=== PATIENT | female | born 1960 | race Caucasian/White ===

== ENCOUNTER 2017-03-11 09:40 | Inpatient (IN) | payer BC, OTHER ==
[2017-03-11] VITALS (11 sets, daily range): BP systolic 87–154; BP diastolic 51–73; PULSE 92–109; RESP 16–19; TEMP 97.8–98.8; O2SAT 97–100
[~2017-03-11] VITALS: Ht 165.1 cm; Wt 65.1 kg
[~2017-03-11 09:40] MED LIST: ACIP20TA19 PO; BONI150T PO; BUPR-197 PO; LEXA10TA PO
[2017-03-11] MEDS ORDERED: WELLTAB39 PO (09:49)
[2017-03-11] MEDS ORDERED: ALPR.5 PO (09:49)
[2017-03-11] MEDS ORDERED: LEXA20TA PO (09:49)
[2017-03-11] MEDS ORDERED: SODIUM CHLORIDE 0.9% FLUSH 10 ML FLUSH IVF PRN (10:15)
[2017-03-11] MEDS ORDERED: SODIUM CHLOR 0.9% 1000 ML INJ 1,000 ML IV ONE (10:15)
--- NOTE | 2017-03-11 10:15 | PD ---
HPI Chief Complaint: Cardiac Complaint Time Seen by Provider: 09:57 Travel History International Travel<30 days: No Contact w/Intl Traveler<30days: No Traveled to known affect area: No History of Present Illness HPI 56-year-old female with history of anxiety and depression here for evaluation of lightheadedness and feeling like herself. Symptoms have been going on for the last 2 weeks, worse since yesterday. When the patient goes from sitting to standing she feels very lightheaded. She denies chest pain or dyspnea. No fevers, chills, cough, or recent illness. No abdominal pain. No urinary symptoms. No melena or hematochezia. Orthostatic vital signs performed by EMS shows that the patient's blood pressure goes from 120/60 while sitting to 59/50 while standing. Her heart rate goes from 80 to 140. PFSH Past Medical History Blood Disorders: No Anxiety: Yes Depression: Yes Cancer: No Cardiovascular Problems: No Chemotherapy: No Cerebrovascular Accident: No Endocrine: No Gastrointestinal Disorders: Yes GERD: Yes Genitourinary: No Headaches: No Hepatitis: No Hiatal Hernia: No Immune Disorder: No Musculoskeletal: No Neurologic: Yes (MOTION SICKNESS) Psychiatric: Yes Reproductive: No Respiratory: No Migraines: No Radiation Therapy: No Seizures: No Ulcer: Yes Tetanus Vaccination: Unknown Influenza Vaccination: No Past Surgical History Abdominal Surgery: Yes (BOWEL OBSTRUCTION SURGERY 2011) AICD: No Appendectomy: No Arteriovenous Shunt: No Cardiac Surgery: No Section: Yes Cholecystectomy: No Ear Surgery: No Endocrine Surgery: No Eye Surgery: No Genitourinary Surgery: No Gynecologic Surgery: Yes (ABD HYSTERCTOMY) Hysterectomy: Yes Insulin Pump: No Joint Replacement: No Oral Surgery: No Pacemaker: No Thoracic Surgery: No Social History Alcohol Use: Yes Tobacco Use: No Substance Use: No Allergies-Medications (Allergen,Severity, Reaction): Coded Allergies: No Known Allergies (Verified , 03/11/17) Reported Meds & Prescriptions Reported Meds & Active Scripts Active Reported Xanax (Alprazolam) 0.5 Mg Tab 0.5 Mg PO Q6H PRN Lexapro (Escitalopram Oxalate) 20 Mg Tab 20 Mg PO DAILY Wellbutrin Xl 24 HR (Bupropion HCl) 300 Mg Tab 300 Mg PO DAILY Review of Systems Except as stated in HPI: all other systems reviewed are Neg Physical Exam Narrative GENERAL: Well-developed, well-nourished, awake, alert, comfortable, no apparent distress. SKIN: Focused skin assessment warm/dry. HEAD: Atraumatic. Normocephalic. EYES: Pupils equal and round. No scleral icterus. No injection or drainage. ENT: No nasal bleeding or discharge. Mucous membranes pink and moist. NECK: Trachea midline. No JVD. CARDIOVASCULAR: Regular rate and rhythm. RESPIRATORY: No accessory muscle use. Clear to auscultation. Breath sounds equal bilaterally. GASTROINTESTINAL: Abdomen soft, non-tender, nondistended. MUSCULOSKELETAL: No obvious deformities. No clubbing. No cyanosis. No edema. NEUROLOGICAL: Awake and alert. No obvious cranial nerve deficits. Motor grossly within normal limits. Normal speech. PSYCHIATRIC: Appropriate mood and affect; insight and judgment normal. Data Data Last Documented VS Vital Signs Date Time Temp Pulse Resp B/P (MAP) Pulse Ox O2 Delivery O2 Flow Rate FiO2 03/11/17 10:28 98.8 97 18 116/70 (85) 100 Room Air Orders Orders Electrocardiogram (03/11/17 ) Basic Metabolic Panel (Bmp) (03/11/17 10:11) Ckmb (Isoenzyme) Profile (03/11/17 10:11) Complete Blood Count With Diff (03/11/17 10:11) D-Dimer (03/11/17 10:11) Magnesium (Mg) (03/11/17 10:11) Prothrombin Time / Inr (Pt) (03/11/17 10:11) Act Partial Throm Time (Ptt) (03/11/17 10:11) Troponin I (03/11/17 10:11) Chest, Single Ap (03/11/17 10:11) Ecg Monitoring (03/11/17 10:11) Iv Access Insert/Monitor (03/11/17 10:11) Oximetry (03/11/17 10:11) Sodium Chloride 0.9% Flush (Ns Flush) (03/11/17 10:15) Urinalysis - C+S If Indicated (03/11/17 10:11) Sodium Chlor 0.9% 1000 Ml Inj (Ns 1000 M (03/11/17 10:15) Type And Screen (03/11/17 10:58) Red Blood Cells (Rbc) (03/11/17 11:03) Blood Product Administration (03/11/17 11:03) Sodium Chlor 0.9% 250 Ml Inj (Ns 250 Ml (03/11/17 11:15) Sodium Chloride 0.9... W/Pantoprazole In (03/11/17 11:04) Sodium Chloride 0.9... W/Pantoprazole In (03/11/17 11:04) Admit Order (Ed Use Only) (03/11/17 12:18) Labs Laboratory Tests Test 03/11/17 10:15 White Blood Count 5.0 TH/MM3 Red Blood Count 2.42 MIL/MM3 Hemoglobin 7.3 GM/DL Hematocrit 21.4 % Mean Corpuscular Volume 88.4 FL Mean Corpuscular Hemoglobin 30.3 PG Mean Corpuscular Hemoglobin Concent 34.2 % Red Cell Distribution Width 14.9 % Platelet Count 203 TH/MM3 Mean Platelet Volume 7.8 FL Neutrophils (%) (Auto) 58.9 % Lymphocytes (%) (Auto) 33.3 % Monocytes (%) (Auto) 6.2 % Eosinophils (%) (Auto) 0.7 % Basophils (%) (Auto) 0.9 % Neutrophils # (Auto) 2.9 TH/MM3 Lymphocytes # (Auto) 1.7 TH/MM3 Monocytes # (Auto) 0.3 TH/MM3 Eosinophils # (Auto) 0.0 TH/MM3 Basophils # (Auto) 0.0 TH/MM3 CBC Comment DIFF FINAL Differential Comment Prothrombin Time 12.5 SEC Prothromb Time International Ratio 1.1 RATIO Activated Partial Thromboplast Time 25.5 SEC D-Dimer Quantitative (PE/DVT) LESS THAN 0.19 MG/L FEU Blood Urea Nitrogen 33 MG/DL Creatinine 0.65 MG/DL Random Glucose 96 MG/DL Calcium Level 8.0 MG/DL Magnesium Level 1.8 MG/DL Sodium Level 138 MEQ/L Potassium Level 4.1 MEQ/L Chloride Level 106 MEQ/L Carbon Dioxide Level 27.6 MEQ/L Anion Gap 4 MEQ/L Estimat Glomerular Filtration Rate 94 ML/MIN Total Creatine Kinase 50 U/L Troponin I LESS THAN 0.02 NG/ML MDM Medical Decision Making Medical Screen Exam Complete: Yes Emergency Medical Condition: Yes Interpretation(s) EKG: Sinus, rate 94, normal axis, normal intervals, incomplete RBBB, no acute ischemic abnormality. Differential Diagnosis Dehydration, anemia, ACS, pneumothorax, PE Narrative Course Initial vital signs show heart rate 109, blood pressure 159/73, pulse ox 100% on room air, oral temp of 97.8F. CBC is remarkable for hemoglobin 7.3, hematocrit 21.4. BMP is unremarkable. Cardiac enzymes are negative. Stool is heme positive and black. Given symptomatic anemia, the patient was written for 2 units of PRBCs. She reports history of bleeding ulcers about 5 years ago. She was consented for blood transfusion. She was also given a Protonix bolus and started on Infusion. Patient was made aware of all findings. She will be admitted for symptomatic anemia, melena. Case discussed with hospitalist Dr. Laird who will admit the patient to her service. Critical Care Narrative Aggregate critical care time was 35 minutes. Time to perform other separately billable procedures was not included in the critical care time. My time did not include minutes spent treating any other patients simultaneously or on activities that did not directly contribute to the patient's treatment. The services I provided to this patient were to treat and/or prevent clinically significant deterioration that could result in: Hemorrhagic shock, , worsening clinical condition, permanent disability I provided critical care services requiring my management, as noted below: Chart data review, documentation time, medication orders and management, vital sign assessments/reviewing monitor data, ordering and reviewing lab tests, ordering and interpreting/reviewing x-rays and diagnostic studies, care of the patient and discussion of the patient with the admitting physicians. Diagnosis Primary Impression: Symptomatic anemia Additional Impression: Melena Admitting Information Admitting Physician Requests: Admit Adriano Meredith MD Mar 11, 2017 10:15
[2017-03-11 10:53] LABS: AUTOMATED NEUTROPHIL # 2.9 TH/MM3 (1.8-7.7); BASOPHIL % 0.9 % (0.0-2.0); EOSINOPHIL % 0.7 % (0.0-4.0); HEMATOCRIT 21.4 % (35.0-46.0); HEMO FLAGS DIFF FINAL; LYMPH % 33.3 % (9.0-44.0); LYMPHOCYTE # 1.7 TH/MM3 (1.0-4.8); MEAN CELL VOLUME 88.4 FL (80.0-100.0); MEAN CORPUSCULAR HEMOGLOBIN 30.3 PG (27.0-34.0); MEAN CORPUSCULAR HGB CONC 34.2 % (32.0-36.0); MONO % 6.2 % (0.0-8.0); NEUT % 58.9 % (16.0-70.0); PLATELET COUNT 203 TH/MM3 (150-450); RED BLOOD COUNT 2.42 MIL/MM3 (4.00-5.30); RED CELL DISTRIBUTION WIDTH 14.9 % (11.6-17.2)
[2017-03-11] MEDS ORDERED: PANTOPRAZOLE INJ 80 MG in SODIUM CHLORIDE 0.9% INJ 35 ML IV ONE (11:04)
[2017-03-11 11:07] LABS: APTT (PATIENT) 25.5 SEC (24.3-30.1); INTERNATIONAL NORMALIZED RATIO 1.1 RATIO; PROTHROMBIN TIME - PATIENT 12.5 SEC (9.8-11.6)
[2017-03-11] MEDS ORDERED: SODIUM CHLOR 0.9% 250 ML INJ 250 ML IV ONE (11:15)
--- NOTE | 2017-03-11 11:16 | RADRPT ---
EXAM DATE/TIME: 03/11/2017 10:25 [facility] COMPARISON: No previous studies available for comparison. INDICATIONS : Shortness of breath, lightheaded, and dizzy. MEDICAL HISTORY : None. SURGICAL HISTORY : None. ENCOUNTER: Initial ACUITY: 2 days PAIN SCORE: 0/10 LOCATION: Bilateral chest FINDINGS: A single view of the chest demonstrates the lungs to be symmetrically aerated without evidence of mas s, infiltrate or effusion. The cardiomediastinal contours are unremarkable. Osseous structures are intact. CONCLUSION: No acute disease. Mauro Aguila MD on March 11, 2017 at 11:09 Board Certified Radiologist. This report was verified electronically.
[2017-03-11 11:34] LABS: ANION GAP 4 MEQ/L (5-15); BICARBONATE 27.6 MEQ/L (21.0-32.0); BLOOD UREA NITROGEN 33 MG/DL (7-18); CHLORIDE 106 MEQ/L (98-107); GLOMERULAR FILTRATION RATE 94 ML/MIN (>89); MAGNESIUM 1.8 MG/DL (1.5-2.5); POTASSIUM 4.1 MEQ/L (3.5-5.1); SODIUM (NA) 138 MEQ/L (136-145)
[2017-03-11 11:39] LABS: CREATINE KINASE 50 U/L (26-192)
[2017-03-11] MEDS ORDERED: LACTULOSE SYRUP 20 GM/30 ML CUP PO PRN (12:30)
[2017-03-11] MEDS ORDERED: SENNOSIDES 8.6 MG TAB PO PRN (12:30)
[2017-03-11] MEDS ORDERED: BISACODYL 10 MG SUPP RECTAL PRN (12:30)
[2017-03-11] MEDS ORDERED: MAGNESIUM HYDROXIDE SUSP 30 ML CUP PO PRN (12:30)
[2017-03-11] MEDS ORDERED: NALOXONE HCL 0.4 MG/ML AMP IV PUSH PRN (12:30)
[2017-03-11] MEDS ORDERED: ONDANSETRON HCL 4 MG/2 ML VIAL IVP PRN (12:30)
[2017-03-11] MEDS ORDERED: SODIUM CHLORIDE 0.9% FLUSH 10 ML FLUSH IV FLUSH PRN (12:30)
--- NOTE | 2017-03-11 12:42 | HHI.HP ---
[facility] Nick Joseph MD Admission Diagnosis symptomatic anemia, melena Diagnoses: Chief Complaint: Lightheadedness Travel History International Travel<30 Days: No Contact w/Intl Traveler <30 Da: No Traveled to Known Affected Are: No History of Present Illness Written by Chivo Kirkland, acting as scribe for Dr. Laird on 03/11/17 at 12:42. 56-year-old female with past medical history of anxiety, depression, PUD who presents for lightheadedness. Patient has been feeling poorly for the past week with chest heaviness, difficulty catching her breath, and lightheadedness. She's been feeling significantly lightheaded and dizzy since yesterday that is made worse with standing. She has some nausea today, but denies any vomiting and oral intake has been good. She hasn't noticed any changes in her stools, however she was found to have grossly melanotic and she was hemoccult positive stool in the ED. Upon EMS arrival she had a systolic blood pressure in the 60s that has improved to 120s with IVF. She remains tachycardic on the monitor in the ED. The patient has been taking Excedrin for headaches, unsure if this formulation has any aspirin or NSAIDs. She does have a history of GI ulcers, last EGD done 7 or 8 years ago. She does not take anything for stomach acid. She does have a glass of wine a few times per week, denies daily use. Review of Systems Except as stated in HPI: all other systems reviewed are Neg Past Family Social History Past Medical History Anxiety/depression GERD/PUD Past Surgical History Hysterectomy EGD/colonoscopy Surgery to have her "bowels untwisted" Reported Medications Reported Meds & Active Scripts Active Reported Xanax (Alprazolam) 0.5 Mg Tab 0.5 Mg PO Q6H PRN Lexapro (Escitalopram Oxalate) 20 Mg Tab 20 Mg PO DAILY Wellbutrin Xl 24 HR (Bupropion HCl) 300 Mg Tab 300 Mg PO DAILY Allergies: Coded Allergies: No Known Allergies (Verified , 03/11/17) Active Ordered Medications Current Medications Medications (Trade) Dose Ordered Sig/Aristeo Route Start Time Stop Time Status Last Admin (NS Flush) 2 ml UNSCH PRN IVF 03/11/17 10:15 Sodium Chloride 250 ml @ 15 mls/hr ONCE ONCE IV 03/11/17 11:15 03/12/17 03:54 Pantoprazole Sodium 80 mg/ Sodium Chloride 100 ml @ 10 mls/hr Q10H IV 03/11/17 11:04 (NS Flush) 2 ml UNSCH PRN IV FLUSH 03/11/17 12:30 (NS Flush) 2 ml BID IV FLUSH 03/11/17 21:00 (Tylenol) 650 mg Q4H PRN PO 03/11/17 12:30 (Zofran Inj) 4 mg Q6H PRN IVP 03/11/17 12:30 (Restoril) 15 mg HS PRN PO 03/11/17 21:00 (Narcan Inj) 0.4 mg UNSCH PRN IV PUSH 03/11/17 12:30 (Renuka-Colace) 1 tab BID PO 03/11/17 21:00 (Milk Of Magnesia Liq) 30 ml Q12H PRN PO 03/11/17 12:30 (Senokot) 17.2 mg Q12H PRN PO 03/11/17 12:30 (Dulcolax Supp) 10 mg DAILY PRN RECTAL 03/11/17 12:30 (Lactulose Liq) 30 ml DAILY PRN PO 03/11/17 12:30 Family History Father had Alzheimer's disease Social History Occasional wine Denies any tobacco or drug use Physical Exam Vital Signs Vital Signs Date Time Temp Pulse Resp B/P (MAP) Pulse Ox O2 Delivery O2 Flow Rate FiO2 03/11/17 10:28 98.8 97 18 116/70 (85) 100 Room Air 03/11/17 09:58 98.8 97 18 116/70 (85) 100 Room Air 03/11/17 09:49 18 03/11/17 09:44 97.8 109 18 154/73 (100) 100 Physical Exam GENERAL: Well-developed well-nourished. In no acute distress. SKIN: Warm and dry. No lesions noted. HEENT: Normocephalic. Pupils equal and round. EOMs intact. Mucous membranes pink and moist. CARDIOVASCULAR: Regular rate and rhythm. No murmur appreciated. RESPIRATORY: No accessory muscle use. Clear to auscultation. Breath sounds equal bilaterally. GASTROINTESTINAL: Abdomen soft, non-tender, nondistended. Bowel sounds x4. MUSCULOSKELETAL: No obvious deformities. No clubbing or cyanosis. No edema. NEUROLOGICAL: Awake and alert. No focal neurological deficits. Moves upper and lower extremities spontaneously. Normal speech. Strength 5/5. PSYCHIATRIC: Appropriate mood and affect; insight and judgment normal. Laboratory Laboratory Tests Test 03/11/17 10:15 White Blood Count 5.0 Red Blood Count 2.42 Hemoglobin 7.3 Hematocrit 21.4 Mean Corpuscular Volume 88.4 Mean Corpuscular Hemoglobin 30.3 Mean Corpuscular Hemoglobin Concent 34.2 Red Cell Distribution Width 14.9 Platelet Count 203 Mean Platelet Volume 7.8 Neutrophils (%) (Auto) 58.9 Lymphocytes (%) (Auto) 33.3 Monocytes (%) (Auto) 6.2 Eosinophils (%) (Auto) 0.7 Basophils (%) (Auto) 0.9 Neutrophils # (Auto) 2.9 Lymphocytes # (Auto) 1.7 Monocytes # (Auto) 0.3 Eosinophils # (Auto) 0.0 Basophils # (Auto) 0.0 CBC Comment DIFF FINAL Differential Comment Prothrombin Time 12.5 Prothromb Time International Ratio 1.1 Activated Partial Thromboplast Time 25.5 D-Dimer Quantitative (PE/DVT) LESS THAN 0.19 Blood Urea Nitrogen 33 Creatinine 0.65 Random Glucose 96 Calcium Level 8.0 Magnesium Level 1.8 Sodium Level 138 Potassium Level 4.1 Chloride Level 106 Carbon Dioxide Level 27.6 Anion Gap 4 Estimat Glomerular Filtration Rate 94 Total Creatine Kinase 50 Troponin I LESS THAN 0.02 Result Diagram: 03/11/17 1015 03/11/17 1015 Imaging Last Impressions Chest X-Ray 03/11/17 1011 Signed Impressions: Service Date/Time: Saturday, March 11, 2017 10:25 - CONCLUSION: No acute disease. MD Zaida Quiros VTE Risk Assessment Zaida VTE Risk Assessment: No/Low Risk (score <= 1) VTE Pharm Contraindication: Active bleeding Tonyi Risk Assessment Model Point Value = 1 Point Value = 2 Point Value = 3 Point Value = 5 Age 41-60 Minor surgery BMI > 25 kg/m2 Swollen legs Varicose veins or History of unexplained or recurrent spontaneous Oral contraceptives or hormone replacement Sepsis (< 1 month) Serious lung disease, including pneumonia (< 1 month) Abnormal pulmonary function Acute myocardial infarction Congestive heart failure (< 1 month) History of inflammatory bowel disease Medical patient at bed rest Age 61-74 Arthroscopic surgery Major open surgery (> 45 min) Laparoscopic surgery (> 45 min) Malignancy Confined to bed (> 72 hours) Immobilizing plaster cast Central venous access Age >= 75 History of VTE Family history of VTE Factor V Leiden Prothrombin [id number] Lupus anticoagulant Anticardiolipin antibodies Elevated serum homocysteine Heparin-induced thrombocytopenia Other congenital or acquired thrombophilia Stroke (< 1 month) Elective arthroplasty Hip, pelvis, or leg fracture Acute spinal cord injury (< 1 month) Prophylaxis Regimen Total Risk Factor Score Risk Level Prophylaxis Regimen 0-1 Low Early ambulation 2 Moderate Order ONE of the following: *Sequential Compression Device (SCD) *Heparin 5000 units SQ BID 3-4 Higher Order ONE of the following medications: *Heparin 5000 units SQ TID *Enoxaparin/Lovenox 40 mg SQ daily (WT < 150 kg, CrCl > 30 mL/min) *Enoxaparin/Lovenox 30 mg SQ daily (WT < 150 kg, CrCl > 10-29 mL/min) *Enoxaparin/Lovenox 30 mg SQ BID (WT < 150 kg, CrCl > 30 mL/min) AND/OR *Sequential Compression Device (SCD) 5 or more Highest Order ONE of the following medications: *Heparin 5000 units SQ TID (Preferred with Epidurals) *Enoxaparin/Lovenox 40 mg SQ daily (WT < 150 kg, CrCl > 30 mL/min) *Enoxaparin/Lovenox 30 mg SQ daily (WT < 150 kg, CrCl > 10-29 mL/min) *Enoxaparin/Lovenox 30 mg SQ BID (WT < 150 kg, CrCl > 30 mL/min) AND *Sequential Compression Device (SCD) Assessment and Plan Assessment and Plan 56-year-old female with past medical history of anxiety, depression, PUD who presents for lightheadedness Symptomatic anemia/GI bleed: With orthostasis, tachycardia, chest pressure, shortness of breath. Hemoccult positive in the ED. Blood pressure and tachycardia are improving some with IVF in the ED. 2 units PRBCs ordered in the ED, awaiting transfusion. Reviewed: Hemoglobin 7.3, previously 12.4 on 02/20/08. -Blood transfusion and follow-up hemoglobin level -Monitor orthostatic vitals -Continue Protonix GTT started in the ED -GI consult -Patient educated to avoiding NSAIDs -Clear liquids for now Shortness of breath/chest pressure: Suspect secondary to symptomatic anemia as above. Suspect symptoms will improve with blood transfusion. Reviewed: D-dimer within normal limits. Chest clear with no acute process. -Trend troponins -O2 and nebs as needed Anxiety/depression: Chronic. -Continue home medications DVT prophylaxis: SCDs. Chemical prophylaxis contraindicated with bleeding. This note was transcribed by AZUCENA Branham. I, Dr. Nora Laird personally performed the history, physical exam, and medical decision making; and confirmed the accuracy of the information in the transcribed note. Authenticated by Dr. Nora Laird on 03/11/17 at 12:42. Discussed Condition With Patient, ED staff Chivo Kirkland Mar 11, 2017 12:42 Nora Laird MD Mar 11, 2017 15:47
[2017-03-11] MEDS ORDERED: RESP: ALBUTEROL 1.25 MG/3 ML NEB (PRN) NEB (13:15)
[2017-03-11 13:38] LABS: BLOOD, URINE NEG (NEG); GLUCOSE,URINE NEG (NEG); KETONE, URINE NEG (NEG); NITRITE,URINE NEG (NEG); PH, URINE 6.5 (5.0-8.5); SQUAMOUS EPITHELIAL CELL URINE <1 /hpf (0-5); URINE COLOR LIGHT-YELLOW (YELLW/STRAW)
[2017-03-11 13:41] LABS: COMMENT (UR) CULT NOT INDICATED; CULTURE IF INDICATED CULT NOT INDICATED
[2017-03-11] MEDS: PANTOPRAZOLE INJ 80 MG in SODIUM CHLORIDE 0.9% INJ 100 ML IV SCH ×2 (13:50→22:23)
--- NOTE | 2017-03-11 15:00 | PD.CONS ---
HPI History of Present Illness This is a 56 year old with past medical history of anxiety, depression, PUD who presents for lightheadedness and shortness of breath. Patient felt poorly for the past week but significantly got worse yesterday with lightheaded and dizzy which is made worse with standing. She has some nausea today, but denies any vomiting, abd pain, change in bowels, hematochezia or melena. However in the ED upon exam, she was found to have melanotic stools and she was Hemoccult positive. On admission she was found hypotensive with tack cardiac. Admits to taking Excedrin for headaches. Denies NSAIDs. She does have a history of GI ulcers, last EGD done 7 or 8 years ago. Denies GERD. She drinks a glass of wine a few times per week, but no heavy use. She is not on any blood thinner. hgb is 7.3, 2 units ordered and pending, doing better now with iv fluids, PPI Gtt started. PFSH Past Medical History Anxiety/depression GERD/PUD Past Surgical History Hysterectomy EGD/colonoscopy Surgery to have her "bowels untwisted Coded Allergies: No Known Allergies (Verified , 03/11/17) Medications Current Medications Medications (Trade) Dose Ordered Sig/Aristeo Route Start Time Stop Time Status Last Admin Sodium Chloride 250 ml @ 15 mls/hr ONCE ONCE IV 03/11/17 11:15 03/12/17 03:54 Pantoprazole Sodium 80 mg/ Sodium Chloride 100 ml @ 10 mls/hr Q10H IV 03/11/17 11:04 03/11/17 13:50 (NS Flush) 2 ml UNSCH PRN IV FLUSH 03/11/17 12:30 (NS Flush) 2 ml BID IV FLUSH 03/11/17 21:00 (Tylenol) 650 mg Q4H PRN PO 03/11/17 12:30 (Zofran Inj) 4 mg Q6H PRN IVP 03/11/17 12:30 (Restoril) 15 mg HS PRN PO 03/11/17 21:00 (Narcan Inj) 0.4 mg UNSCH PRN IV PUSH 03/11/17 12:30 (Renuka-Colace) 1 tab BID PO 03/11/17 21:00 (Milk Of Magnesia Liq) 30 ml Q12H PRN PO 03/11/17 12:30 (Senokot) 17.2 mg Q12H PRN PO 03/11/17 12:30 (Dulcolax Supp) 10 mg DAILY PRN RECTAL 03/11/17 12:30 (Lactulose Liq) 30 ml DAILY PRN PO 03/11/17 12:30 (Albuterol Neb) 1.25 mg Q4HR NEB PRN NEB 03/11/17 13:15 (Xanax) 0.5 mg Q6H PRN PO 03/11/17 13:15 (Wellbutrin Sr) 150 mg BID PO 03/12/17 09:00 (Lexapro) 20 mg DAILY PO 03/12/17 09:00 Family History Father had Alzheimer's disease Social History Occasional wine Denies any tobacco or drug use Review of Systems Constitutional: COMPLAINS OF: Fatigue, Dizziness Endocrine: DENIES: Polyuria Eyes: DENIES: Double Vision Ears, nose, mouth, throat: DENIES: Hoarseness Respiratory: COMPLAINS OF: Shortness of breath Cardiovascular: DENIES: Lower Extremity Edema Gastrointestinal: COMPLAINS OF: Nausea, DENIES: Abdominal pain, Black stools, Bloody stools, Constipation, Diarrhea, Vomiting, Difficulty Swallowing, Anorexia , Odynophagia, Swelling of Abdomen, Heartburn, Hematemesis Genitourinary: DENIES: Nocturia Musculoskeletal: DENIES: Neck pain Integumentary: DENIES: Jaundice Hematologic/lymphatic: DENIES: Bruising Immunologic/allergic: DENIES: Eczema Neurologic: COMPLAINS OF: Headache, DENIES: Abnormal gait Psychiatric: DENIES: Anxiety GI Exam Vitals I&O Vital Signs Date Time Temp Pulse Resp B/P (MAP) Pulse Ox O2 Delivery O2 Flow Rate FiO2 03/11/17 13:52 98 19 101/58 (72) 100 Room Air 03/11/17 10:28 98.8 97 18 116/70 (85) 100 Room Air 03/11/17 09:58 98.8 97 18 116/70 (85) 100 Room Air 03/11/17 09:49 18 03/11/17 09:44 97.8 109 18 154/73 (100) 100 Imaging Last Impressions Chest X-Ray 03/11/17 1011 Signed Impressions: Service Date/Time: Monday, March 11, 2017 10:25 - CONCLUSION: No acute disease. Mauro Aguila MD Laboratory Test 03/11/17 10:15 03/11/17 13:15 White Blood Count 5.0 TH/MM3 Red Blood Count 2.42 MIL/MM3 Hemoglobin 7.3 GM/DL Hematocrit 21.4 % Mean Corpuscular Volume 88.4 FL Mean Corpuscular Hemoglobin 30.3 PG Mean Corpuscular Hemoglobin Concent 34.2 % Red Cell Distribution Width 14.9 % Platelet Count 203 TH/MM3 Mean Platelet Volume 7.8 FL Neutrophils (%) (Auto) 58.9 % Lymphocytes (%) (Auto) 33.3 % Monocytes (%) (Auto) 6.2 % Eosinophils (%) (Auto) 0.7 % Basophils (%) (Auto) 0.9 % Neutrophils # (Auto) 2.9 TH/MM3 Lymphocytes # (Auto) 1.7 TH/MM3 Monocytes # (Auto) 0.3 TH/MM3 Eosinophils # (Auto) 0.0 TH/MM3 Basophils # (Auto) 0.0 TH/MM3 CBC Comment DIFF FINAL Differential Comment Prothrombin Time 12.5 SEC Prothromb Time International Ratio 1.1 RATIO Activated Partial Thromboplast Time 25.5 SEC D-Dimer Quantitative (PE/DVT) LESS THAN 0.19 MG/L FEU Blood Urea Nitrogen 33 MG/DL Creatinine 0.65 MG/DL Random Glucose 96 MG/DL Calcium Level 8.0 MG/DL Magnesium Level 1.8 MG/DL Sodium Level 138 MEQ/L Potassium Level 4.1 MEQ/L Chloride Level 106 MEQ/L Carbon Dioxide Level 27.6 MEQ/L Anion Gap 4 MEQ/L Estimat Glomerular Filtration Rate 94 ML/MIN Total Creatine Kinase 50 U/L Troponin I LESS THAN 0.02 NG/ML Urine Color LIGHT-YELLOW Urine Turbidity CLEAR Urine pH 6.5 Urine Specific [place] 1.012 Urine Protein NEG mg/dL Urine Glucose (UA) NEG mg/dL Urine Ketones NEG mg/dL Urine Occult Blood NEG Urine Nitrite NEG Urine Bilirubin NEG Urine Urobilinogen LESS THAN 2.0 MG/DL Urine Leukocyte Esterase TRACE Urine WBC LESS THAN 1 /hpf Urine Squamous Epithelial Cells <1 /hpf Microscopic Urinalysis Comment CULT NOT INDICATED Physical Examination HEENT: normocephalic; atraumatic; no jaundice. NECK: Neck is supple, no JVD, no lymphadenopathy. CHEST: Chest is clear to auscultation and percussion. CARDIAC: Regular rate and rhythm with no murmur gallop or rubs. ABDOMEN: Soft, nondistended, nontender; no hepatosplenomegaly; bowel sounds are present in all four quadrants. EXTREMITIES: No clubbing, cyanosis, or edema. SKIN: Normal; no rash; no jaundice. CROSS TIE TRAM LOADER: No focal deficits; alert and oriented times three. Assessment and Plan Plan - Anemia, upper GI bleed/ symptomatic with hypotensive and tacky cardiac- she was found to have melanotic stools and she was Hemoccult positive in the ED. On admission she was found hypotensive with tack cardiac. Admits to taking Excedrin for headaches. Denies NSAIDs. She does have a history of GI ulcers, last EGD done 7 or 8 years ago. Denies GERD. She drinks a glass of wine a few times per week, but no heavy use. She is not on any blood thinner. hgb is 7.3, 2 units ordered and pending, doing better now with iv fluids, PPI Gtt started. Currently patient is hemodynamically stable Pt her self denies any vomiting, abd pain, change in bowels, hematochezia or melena. - Anemia- Secondary to acute GI bleed, 2 units of blood pending, PPI Gtt Plan: - Clears - NPO mn - EGD tomorrow - Obtain consents - If above negative, consider colonoscopy - Cont. PPI Gtt - Monitor hh - Transfuse as needed - Notify GI for active bleed - Supportive care - Patient seen and examined by Dr. Zepeda and myself and this note is written on his behalf. Pat Mojica Mar 11, 2017 15:00
[2017-03-11] MEDS: DOCUSATE SODIUM 50 MG/SENNA 8.6 MG TAB PO SCH (20:19)
[2017-03-11] MEDS: ACETAMINOPHEN 325 MG TAB PO PRN (20:19)
[2017-03-11] MEDS ORDERED: TEMAZEPAM 15 MG CAP PO PRN (21:00)
[2017-03-11 21:46] LABS: AUTOMATED NEUTROPHIL # 5.4 TH/MM3 (1.8-7.7); BASOPHIL % 0.4 % (0.0-2.0); EOSINOPHIL % 0.7 % (0.0-4.0); HEMO FLAGS DIFF FINAL; LYMPH % 16.9 % (9.0-44.0); LYMPHOCYTE # 1.2 TH/MM3 (1.0-4.8); MEAN CELL VOLUME 85.4 FL (80.0-100.0); MEAN CORPUSCULAR HEMOGLOBIN 29.4 PG (27.0-34.0); MEAN CORPUSCULAR HGB CONC 34.4 % (32.0-36.0); MONO % 5.1 % (0.0-8.0); NEUT % 76.9 % (16.0-70.0); PLATELET COUNT 154 TH/MM3 (150-450); RED BLOOD COUNT 2.46 MIL/MM3 (4.00-5.30); RED CELL DISTRIBUTION WIDTH 16.2 % (11.6-17.2)
[2017-03-11] MEDS ORDERED: SODIUM CHLORID 0.9% 500 ML INJ 500 ML IV ONE (23:30)
[2017-03-12] VITALS (10 sets, daily range): BP systolic 98–115; BP diastolic 53–62; PULSE 95–115; RESP 16–20; TEMP 98–98.7; O2SAT 90–99
[2017-03-12] MEDS: ACETAMINOPHEN 325 MG TAB PO PRN ×4 (02:44→20:16)
[2017-03-12] MEDS ORDERED: SODIUM CHLORID 0.9% 500 ML IV PRN (03:15)
[2017-03-12] MEDS ORDERED: POVIDONE IODINE 5% (ANTISEPSIS KIT) 4 APPLICATIONS EACH NARE PRN (03:15)
[2017-03-12] MEDS ORDERED: METOPROLOL TARTRATE 25 MG TAB PO PRN (03:15)
[2017-03-12] MEDS ORDERED: CHLORHEXIDINE GLUCONATE 2 % 1 PACK (2 CLOTHS) TOPICAL PRN (03:15)
[2017-03-12] MEDS ORDERED: LACTATED RINGER'S 1000 ML IV PRN (03:15)
[2017-03-12] MEDS ORDERED: INSULIN HUMAN REGULAR 1,000 UNITS/10 ML VIAL SQ PRN (03:15)
[2017-03-12 04:26] LABS: AUTOMATED NEUTROPHIL # 3.3 TH/MM3 (1.8-7.7); BASOPHIL % 0.4 % (0.0-2.0); EOSINOPHIL % 0.7 % (0.0-4.0); LYMPH % 24.5 % (9.0-44.0); LYMPHOCYTE # 1.2 TH/MM3 (1.0-4.8); MEAN CELL VOLUME 86.2 FL (80.0-100.0); MEAN CORPUSCULAR HGB CONC 33.6 % (32.0-36.0); MONO % 5.8 % (0.0-8.0); NEUT % 68.6 % (16.0-70.0); PLATELET COUNT 169 TH/MM3 (150-450); RED BLOOD COUNT 2.43 MIL/MM3 (4.00-5.30); RED CELL DISTRIBUTION WIDTH 16.4 % (11.6-17.2); WHITE BLOOD COUNT 4.8 TH/MM3 (4.0-11.0)
[2017-03-12 04:34] LABS: HEMO FLAGS DIFF FINAL
[2017-03-12 04:37] LABS: HEMATOCRIT 20.9 % (35.0-46.0)
[2017-03-12 04:56] LABS: POTASSIUM 3.6 MEQ/L (3.5-5.1)
[2017-03-12] MEDS: PANTOPRAZOLE INJ 80 MG in SODIUM CHLORIDE 0.9% INJ 100 ML IV SCH (07:04)
[2017-03-12] MEDS: SODIUM CHLORIDE 0.9% FLUSH 10 ML FLUSH IV FLUSH SCH ×2 (07:47→20:16)
[2017-03-12] MEDS: ESCITALOPRAM OXALATE 20 MG TAB PO SCH (07:51)
[2017-03-12] MEDS: DOCUSATE SODIUM 50 MG/SENNA 8.6 MG TAB PO SCH ×2 (07:51→20:15)
[2017-03-12] MEDS: ALPRAZolam 0.5 MG TAB PO PRN ×2 (07:51→15:51)
[2017-03-12] MEDS: buPROPion HCL 150 MG SUSTAINED RELEASE TAB PO SCH ×2 (07:52→20:16)
--- NOTE | 2017-03-12 10:08 | HHI.PR ---
Subjective Remarks Follow up symptomatic anemia, GI bleed. Patient reports headache. States that she gets migraines "almost daily". Usually takes Excedrin. No abdominal pain, nausea, vomiting, diarrhea. Objective Vitals Vital Signs Date Time Temp Pulse Resp B/P (MAP) Pulse Ox O2 Delivery O2 Flow Rate FiO2 03/12/17 09:01 98.7 103 20 112/62 (79) 97 03/12/17 08:39 98.5 104 16 105/62 (76) 99 03/12/17 06:16 98.2 102/58 97 03/12/17 05:48 98.6 106 110/56 96 03/12/17 05:33 98.6 106 99/54 97 03/12/17 05:14 98.7 115 99/53 99 03/12/17 00:00 98.1 110 20 98/53 (68) 90 03/11/17 20:00 98.0 101 18 87/51 (63) 97 03/11/17 16:31 98.6 92 17 96/52 99 03/11/17 16:29 98.4 102 16 90/53 (65) 99 03/11/17 16:20 98.4 93 16 93/51 99 03/11/17 16:15 98.4 96 16 92/53 99 03/11/17 16:06 94 17 101/58 100 03/11/17 14:46 94 16 101/58 (72) 100 03/11/17 13:52 98 19 101/58 (72) 100 Room Air 03/11/17 10:28 98.8 97 18 116/70 (85) 100 Room Air I/O 03/11/17 03/11/17 03/11/17 03/12/17 03/12/17 03/12/17 07:00 15:00 23:00 07:00 15:00 23:00 Intake Total 430 ml 448 ml Balance 430 ml 448 ml Packed Cells 400 ml 400 ml Blood Product IV Normal Saline Flush 30 ml 48 ml # Voids 1 Result Diagram: 03/12/17 0355 03/12/17 0355 Imaging Last Impressions Chest X-Ray 03/11/17 1011 Signed Impressions: Service Date/Time: Saturday, March 11, 2017 10:25 - CONCLUSION: No acute disease. Mauro Aguila MD Objective Remarks General: No acute distress. Heart: Regular rate and rhythm. No murmur. Lungs: Clear to auscultation bilaterally. No wheezes, rales, or rhonchi. Breathing is nonlabored. Abdomen: Soft, nontender, nondistended. Extremities: No lower extremity edema. Psych: Alert and oriented. Urinary Catheter: No Vascular Central Line Catheter: No A/P Problem List: (1) GI bleed ICD Code: K92.2 - Gastrointestinal hemorrhage, unspecified (2) Headache ICD Code: R51 - Headache (3) Melena ICD Code: K92.1 - Melena Status: Acute (4) Symptomatic anemia ICD Code: D64.9 - Anemia, unspecified Status: Acute Assessment and Plan 1. Symptomatic anemia, GI bleed: Patient takes NSAIDs frequently for headaches. Has had GI bleed in the past as well. Appreciate GI recommendations. Planning for endoscopy today. Monitor H/H, transfuse as needed. Has received 2 units PRBCs. Avoid NSAIDs. Continue Protonix drip. 2. Dyspnea, chest pressure: Likely secondary to anemia. No complaints of chest pain or dyspnea this morning. 3. Anxiety/depression: Continue home medications. 4. Headache: Patient reports chronic headaches for which she usually takes Excedrin. Will avoid NSAIDs due to GI bleed. 5. DVT prophylaxis: SCDs, SCHUYLER davis. Avoid chemical prophylaxis due to GI bleed. Keo Robins MD Mar 12, 2017 10:08
[2017-03-12] MEDS ORDERED: SODIUM CHLORID 0.9% 500 ML INJ 500 ML IV ONE (10:15)
[2017-03-12] MEDS ORDERED: MORPHINE SULFATE 2 MG/ML INJ IV PUSH PRN (10:15)
[2017-03-12 11:13] LABS: HEMATOCRIT 24.5 % (35.0-46.0); REVIEW FLAG FINAL
--- NOTE | 2017-03-12 11:31 | HHI.GIFU ---
Subjective Remarks EGD today showed two small ulcers in the gastric antrum. No active bleeding. change from IV to PO Protonix. (Written) Objective Vitals I&O Vital Signs Date Time Temp Pulse Resp B/P (MAP) Pulse Ox O2 Delivery O2 Flow Rate FiO2 03/12/17 09:01 98.7 103 20 112/62 (79) 97 03/12/17 08:39 98.5 104 16 105/62 (76) 99 03/12/17 06:16 98.2 102/58 97 03/12/17 05:48 98.6 106 110/56 96 03/12/17 05:33 98.6 106 99/54 97 03/12/17 05:14 98.7 115 99/53 99 03/12/17 00:00 98.1 110 20 98/53 (68) 90 03/11/17 20:00 98.0 101 18 87/51 (63) 97 03/11/17 16:31 98.6 92 17 96/52 99 03/11/17 16:29 98.4 102 16 90/53 (65) 99 03/11/17 16:20 98.4 93 16 93/51 99 03/11/17 16:15 98.4 96 16 92/53 99 03/11/17 16:06 94 17 101/58 100 03/11/17 14:46 94 16 101/58 (72) 100 03/11/17 13:52 98 19 101/58 (72) 100 Room Air I/O 03/11/17 03/11/17 03/11/17 03/12/17 03/12/17 03/12/17 07:00 15:00 23:00 07:00 15:00 23:00 Intake Total 430 ml 448 ml Balance 430 ml 448 ml Packed Cells 400 ml 400 ml Blood Product IV Normal Saline Flush 30 ml 48 ml # Voids 1 Laboratory Laboratory Tests Test 03/11/17 13:15 03/11/17 17:45 03/11/17 21:25 03/11/17 23:51 Urine Color LIGHT-YELLOW Urine Turbidity CLEAR Urine pH 6.5 Urine Specific [place] 1.012 Urine Protein NEG Urine Glucose (UA) NEG Urine Ketones NEG Urine Occult Blood NEG Urine Nitrite NEG Urine Bilirubin NEG Urine Urobilinogen LESS THAN 2.0 Urine Leukocyte Esterase TRACE Urine WBC LESS THAN 1 Urine Squamous Epithelial Cells <1 Microscopic Urinalysis Comment CULT NOT INDICATED Troponin I LESS THAN 0.02 LESS THAN 0.02 White Blood Count 7.0 Red Blood Count 2.46 Hemoglobin 7.2 Hematocrit 21.0 Mean Corpuscular Volume 85.4 Mean Corpuscular Hemoglobin 29.4 Mean Corpuscular Hemoglobin Concent 34.4 Red Cell Distribution Width 16.2 Platelet Count 154 Mean Platelet Volume 7.2 Neutrophils (%) (Auto) 76.9 Lymphocytes (%) (Auto) 16.9 Monocytes (%) (Auto) 5.1 Eosinophils (%) (Auto) 0.7 Basophils (%) (Auto) 0.4 Neutrophils # (Auto) 5.4 Lymphocytes # (Auto) 1.2 Monocytes # (Auto) 0.4 Eosinophils # (Auto) 0.0 Basophils # (Auto) 0.0 CBC Comment DIFF FINAL Differential Comment Test 03/12/17 03:55 03/12/17 10:39 White Blood Count 4.8 Red Blood Count 2.43 Hemoglobin 7.0 8.5 Hematocrit 20.9 24.5 Mean Corpuscular Volume 86.2 Mean Corpuscular Hemoglobin 29.0 Mean Corpuscular Hemoglobin Concent 33.6 Red Cell Distribution Width 16.4 Platelet Count 169 Mean Platelet Volume 7.2 Neutrophils (%) (Auto) 68.6 Lymphocytes (%) (Auto) 24.5 Monocytes (%) (Auto) 5.8 Eosinophils (%) (Auto) 0.7 Basophils (%) (Auto) 0.4 Neutrophils # (Auto) 3.3 Lymphocytes # (Auto) 1.2 Monocytes # (Auto) 0.3 Eosinophils # (Auto) 0.0 Basophils # (Auto) 0.0 CBC Comment DIFF FINAL Differential Comment Blood Urea Nitrogen 14 Creatinine 0.56 Random Glucose 99 Calcium Level 8.0 Sodium Level 143 Potassium Level 3.6 Chloride Level 112 Carbon Dioxide Level 27.0 Anion Gap 4 Estimat Glomerular Filtration Rate 111 Physical Exam HEENT: Pupils round and reactive to light; normocephalic; atraumatic; no jaundice. Throat is clear. NECK: Neck is supple, no JVD, no lymphadenopathy. CHEST: Chest is clear to auscultation and percussion. CARDIAC: Regular rate and rhythm with no murmur gallop or rubs. ABDOMEN: Soft, nondistended, nontender; no hepatosplenomegaly; bowel sounds are present in all four quadrants. EXTREMITIES: No clubbing, cyanosis, or edema. SKIN: Normal; no rash; no jaundice. SPOTLIGHT OPERATOR: No focal deficits; alert and oriented times three. Assessment and Plan Plan - Anemia, upper GI bleed/ symptomatic with hypotensive and tacky cardiac- she was found to have melanotic stools and she was Hemoccult positive in the ED. On admission she was found hypotensive with tack cardiac. Admits to taking Excedrin for headaches. Denies NSAIDs. She does have a history of GI ulcers, last EGD done 7 or 8 years ago. Denies GERD. She drinks a glass of wine a few times per week, but no heavy use. She is not on any blood thinner. hgb is 7.3, 2 units ordered and pending, doing better now with iv fluids, PPI Gtt started. Currently patient is hemodynamically stable Pt her self denies any vomiting, abd pain, change in bowels, hematochezia or melena. - Anemia- Secondary to acute GI bleed, 2 units of blood pending, PPI Gtt Plan: - Clears - If above negative, consider colonoscopy - Cont. PPI Gtt - Monitor hh - Transfuse as needed - Notify GI for active bleed - Supportive care Jason Zepeda MD Mar 12, 2017 11:31
[2017-03-12] MEDS ORDERED: *morphine SULFATE 8 MG/ML PERIprocedure ONLY ONE (11:37)
[2017-03-12] MEDS ORDERED: *HYDROmorphone PF 1 MG VIAL PERIprocedural Use ONLY ONE ×2 (11:53→11:56)
[2017-03-12] MEDS ORDERED: DO NOT ADM ANY ANTICOAGULANT DRUGS PRN (12:00)
[2017-03-12] MEDS ORDERED: ePHEDrine/NS 25 MG/5 ML SYR IV ONE (12:00)
[2017-03-12] MEDS ORDERED: PHENYLEPH/NS 1000 MCG/10 ML SYR IV ONE (12:00)
[2017-03-12] MEDS ORDERED: PROPOFOL 200 MG/20 ML AMP IV ONE (12:00)
--- NOTE | 2017-03-12 20:48 | EKG ---
Date Performed: 03/11/2017 Time Performed: 18:58:53 PTAGE: 56 years EKG: SINUS TACHYCARDIA POSSIBLE RIGHT VENTRICULAR CONDUCTION DELAY ABNORMAL RHYTHM ECG PREVIOUS TRACING : 03/11/2017 09.55 DOCTOR: Sathish Quinones Interpretating Date/Time 03/12/2017 20:43:58
--- NOTE | 2017-03-12 20:58 | EKG ---
Date Performed: 03/11/2017 Time Performed: 09:55:35 PTAGE: 56 years EKG: Sinus rhythm POSSIBLE LEFT ATRIAL ENLARGEMENT BORDERLINE ECG PREVIOUS TRACING : 08/02/2007 16.26 DOCTOR: Sathish Quinones Interpretating Date/Time 03/12/2017 20:50:54
[2017-03-13] VITALS (8 sets, daily range): BP systolic 101–112; BP diastolic 50–59; PULSE 102–116; RESP 18–20; TEMP 97–98.7; O2SAT 97–99
[2017-03-13] MEDS: SODIUM CHLORIDE 0.9% FLUSH 10 ML FLUSH IV FLUSH SCH ×2 (09:00→20:43)
[2017-03-13 09:13] LABS: AUTOMATED NEUTROPHIL # 3.3 TH/MM3 (1.8-7.7); BASOPHIL % 0.6 % (0.0-2.0); EOSINOPHIL % 0.8 % (0.0-4.0); HEMATOCRIT 24.4 % (35.0-46.0); HEMO FLAGS DIFF FINAL; LYMPH % 30.9 % (9.0-44.0); LYMPHOCYTE # 1.7 TH/MM3 (1.0-4.8); MEAN CELL VOLUME 86.6 FL (80.0-100.0); MEAN CORPUSCULAR HEMOGLOBIN 29.8 PG (27.0-34.0); MEAN CORPUSCULAR HGB CONC 34.4 % (32.0-36.0); MONO % 6.7 % (0.0-8.0); PLATELET COUNT 193 TH/MM3 (150-450); RED BLOOD COUNT 2.81 MIL/MM3 (4.00-5.30); RED CELL DISTRIBUTION WIDTH 16.3 % (11.6-17.2); WHITE BLOOD COUNT 5.4 TH/MM3 (4.0-11.0)
[2017-03-13] MEDS: ESCITALOPRAM OXALATE 20 MG TAB PO SCH (09:36)
[2017-03-13] MEDS: buPROPion HCL 150 MG SUSTAINED RELEASE TAB PO SCH ×2 (09:36→20:39)
[2017-03-13] MEDS: DOCUSATE SODIUM 50 MG/SENNA 8.6 MG TAB PO SCH ×2 (09:36→20:42)
[2017-03-13] MEDS: PANTOPRAZOLE SOD 40 MG DELAYED RELEASE TAB PO SCH ×2 (09:36→20:43)
[2017-03-13] MEDS: ACETAMINOPHEN 325 MG TAB PO PRN ×3 (09:36→20:42)
[2017-03-13] MEDS: ALPRAZolam 0.5 MG TAB PO PRN ×2 (09:51→20:47)
--- NOTE | 2017-03-13 11:48 | HHI.PR ---
Subjective Remarks Follow up anemia, GI bleed. Patient states that she feels much better. No apparent bleeding. Wants to have her diet advanced. No nausea/vomiting. She reports having a normal bowel movement. Objective Vitals Vital Signs Date Time Temp Pulse Resp B/P (MAP) Pulse Ox O2 Delivery O2 Flow Rate FiO2 03/13/17 08:46 98.3 110 20 112/59 (76) 97 03/13/17 06:06 97.0 103 18 109/55 (73) 97 03/13/17 00:00 98.2 116 18 104/51 (68) 97 03/12/17 20:49 98.0 95 18 115/58 (77) 98 03/12/17 18:05 95 21 03/12/17 16:13 98.0 98 17 106/55 (72) 95 03/12/17 14:13 14 03/12/17 12:12 95 16 95 03/12/17 12:00 99 101/58 (72) 95 Room Air 03/12/17 11:45 100 16 106/59 (75) 96 Room Air I/O 03/12/17 03/12/17 03/12/17 03/13/17 03/13/17 03/13/17 07:00 15:00 23:00 07:00 15:00 23:00 Intake Total 1848 ml Balance 1848 ml Intake IV Total 1000 ml Packed Cells 400 ml Blood Product IV Normal Saline Flush 48 ml Other 400 ml # Voids 2 3 # Bowel Movements 1 Result Diagram: 03/13/17 0746 03/12/17 0355 Imaging Last Impressions Chest X-Ray 03/11/17 1011 Signed Impressions: Service Date/Time: Saturday, March 11, 2017 10:25 - CONCLUSION: No acute disease. Mauro Aguila MD Objective Remarks General: No acute distress. Heart: Regular rate and rhythm. No murmur. Lungs: Clear to auscultation bilaterally. No wheezes, rales, or rhonchi. Breathing is nonlabored. Abdomen: Soft, nontender, nondistended. Extremities: No lower extremity edema. Psych: Alert and oriented. Procedures 03/12/17 EGD Urinary Catheter: No Vascular Central Line Catheter: No A/P Problem List: (1) GI bleed ICD Code: K92.2 - Gastrointestinal hemorrhage, unspecified (2) Headache ICD Code: R51 - Headache (3) Melena ICD Code: K92.1 - Melena Status: Acute (4) Symptomatic anemia ICD Code: D64.9 - Anemia, unspecified Status: Acute Assessment and Plan 1. Symptomatic anemia, GI bleed: Patient takes NSAIDs frequently for headaches. Has had GI bleed in the past as well. Appreciate GI recommendations. A/P EGD. Advance diet. Monitor H/H, transfuse as needed. Has received 2 units PRBCs. Avoid NSAIDs. Continue Protonix. 2. Dyspnea, chest pressure: Likely secondary to anemia. No complaints of chest pain or dyspnea this morning. 3. Anxiety/depression: Continue home medications. 4. Headache: Improved. Patient reports chronic headaches for which she usually takes Excedrin. Will avoid NSAIDs due to GI bleed. 5. DVT prophylaxis: SCHUYLER Plummer. Avoid chemical prophylaxis due to GI bleed. Discharge Planning Possible discharge home tomorrow. Keo Robins MD Mar 13, 2017 11:48
--- NOTE | 2017-03-13 17:03 | HHI.GIFU ---
Subjective Remarks Pt resting in bed, family at bedside. No BM today. no further bleeding. tolerating regular diet. Objective Vitals I&O Vital Signs Date Time Temp Pulse Resp B/P (MAP) Pulse Ox O2 Delivery O2 Flow Rate FiO2 03/13/17 14:47 99 03/13/17 12:41 98.4 106 20 103/58 (73) 99 03/13/17 08:46 98.3 110 20 112/59 (76) 97 03/13/17 06:06 97.0 103 18 109/55 (73) 97 03/13/17 00:00 98.2 116 18 104/51 (68) 97 03/12/17 20:49 98.0 95 18 115/58 (77) 98 03/12/17 18:05 95 21 I/O 03/12/17 03/12/17 03/12/17 03/13/17 03/13/17 03/13/17 07:00 15:00 23:00 07:00 15:00 23:00 Intake Total 1848 ml Balance 1848 ml Intake IV Total 1000 ml Packed Cells 400 ml Blood Product IV Normal Saline Flush 48 ml Other 400 ml # Voids 2 3 # Bowel Movements 1 Laboratory Laboratory Tests Test 03/13/17 07:46 White Blood Count 5.4 Red Blood Count 2.81 Hemoglobin 8.4 Hematocrit 24.4 Mean Corpuscular Volume 86.6 Mean Corpuscular Hemoglobin 29.8 Mean Corpuscular Hemoglobin Concent 34.4 Red Cell Distribution Width 16.3 Platelet Count 193 Mean Platelet Volume 7.6 Neutrophils (%) (Auto) 61.0 Lymphocytes (%) (Auto) 30.9 Monocytes (%) (Auto) 6.7 Eosinophils (%) (Auto) 0.8 Basophils (%) (Auto) 0.6 Neutrophils # (Auto) 3.3 Lymphocytes # (Auto) 1.7 Monocytes # (Auto) 0.4 Eosinophils # (Auto) 0.0 Basophils # (Auto) 0.0 CBC Comment DIFF FINAL Differential Comment Physical Exam HEENT: PERRL; normocephalic; atraumatic; no jaundice. CHEST: CTA CARDIAC: RRR ABDOMEN: Soft, nondistended, nontender; no hepatosplenomegaly; bowel sounds are present in all four quadrants. EXTREMITIES: No clubbing, cyanosis, or edema. SKIN: Normal; no rash; no jaundice. 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 Assessment and Plan Plan - Anemia, upper GI bleed/ symptomatic with hypotensive and tacky cardiac- she was found to have melanotic stools and she was Hemoccult positive in the ED. On admission she was found hypotensive with tack cardiac. Admits to taking Excedrin for headaches. Denies NSAIDs. She does have a history of GI ulcers, last EGD done 7 or 8 years ago. Denies GERD. She drinks a glass of wine a few times per week, but no heavy use. She is not on any blood thinner. S/P EGD found 2 small ulcers, no active bleeding. HH stable - Anemia- Secondary to acute GI bleed, EGD as above. HH stable Plan: - await pathology - PO protonix - RAHEEL - Monitor hh - Transfuse as needed - Notify GI for active bleed - ok to d/c from GI standpoint - f/u with GI in 2 weeks - Supportive care This pt seen by myself and Dr Rizvi and this note is written on her behalf Veronica Kat Mar 13, 2017 17:03
[2017-03-14] VITALS: BP 104/57; PULSE 92; RESP 18; TEMP 97.9; O2SAT 98
[2017-03-14 04:00] VITALS: BP 92/54; PULSE 93; RESP 18; TEMP 97.6; O2SAT 98
[2017-03-14 07:01] LABS: AUTOMATED NEUTROPHIL # 1.7 TH/MM3 (1.8-7.7); BASOPHIL % 0.8 % (0.0-2.0); EOSINOPHIL # 0.1 TH/MM3 (0-0.4); HEMATOCRIT 25.3 % (35.0-46.0); HEMO FLAGS DIFF FINAL; LYMPH % 41.5 % (9.0-44.0); LYMPHOCYTE # 1.6 TH/MM3 (1.0-4.8); MEAN CORPUSCULAR HEMOGLOBIN 29.8 PG (27.0-34.0); MEAN CORPUSCULAR HGB CONC 34.3 % (32.0-36.0); MONO % 9.6 % (0.0-8.0); NEUT % 45.1 % (16.0-70.0); PLATELET COUNT 209 TH/MM3 (150-450); RED BLOOD COUNT 2.91 MIL/MM3 (4.00-5.30); RED CELL DISTRIBUTION WIDTH 16.1 % (11.6-17.2); WHITE BLOOD COUNT 3.8 TH/MM3 (4.0-11.0)
[2017-03-14 07:27] LABS: BICARBONATE 29.2 MEQ/L (21.0-32.0); POTASSIUM 3.5 MEQ/L (3.5-5.1)
[2017-03-14 07:51] VITALS: BP 105/57; PULSE 92; RESP 20; TEMP 97.7; O2SAT 100
[2017-03-14] MEDS: PANTOPRAZOLE SOD 40 MG DELAYED RELEASE TAB PO SCH (08:10)
[2017-03-14] MEDS: SODIUM CHLORIDE 0.9% FLUSH 10 ML FLUSH IV FLUSH SCH (08:10)
[2017-03-14] MEDS: buPROPion HCL 150 MG SUSTAINED RELEASE TAB PO SCH (08:10)
[2017-03-14] MEDS: ESCITALOPRAM OXALATE 20 MG TAB PO SCH (08:10)
[2017-03-14] MEDS: DOCUSATE SODIUM 50 MG/SENNA 8.6 MG TAB PO SCH (08:10)
[2017-03-14 08:40] VITALS: O2SAT 95
[2017-03-14] MEDS ORDERED: PANT40TA3 PO (10:45)
--- NOTE | 2017-03-14 10:47 | HHI.DCPOC ---
Discharge Care Plan Diagnosis: (1) GI bleed Your Health Problems Are: Anxiety Bleeding Tendency (Gastrointestinal) Goals to Promote Your Health * To prevent worsening of your condition and complications * To maintain your health at the optimal level Directions to Meet Your Goals Take your medications as prescribed Follow your dietary instruction Follow activity as directed Keep your appointments as scheduled Take your immunizations and boosters as scheduled If your symptoms worsen call your PCP, if no PCP go to Urgent Care Center or Emergency Room Smoking is Dangerous to Your Health. Avoid second hand smoke Call the 24-hour hour crisis hotline for domestic abuse at [facility] Mar 14, 2017 10:47
[2017-03-14 11:16] VITALS: BP 96/52; PULSE 105; RESP 20; TEMP 98; O2SAT 98
--- NOTE | 2017-03-14 11:34 | HHI.GIFU ---
Subjective Remarks Resting in bed. No n/v. No abdominal pain. Tolerating diet. Would like to go home. Objective Vitals I&O Vital Signs Date Time Temp Pulse Resp B/P (MAP) Pulse Ox O2 Delivery O2 Flow Rate FiO2 03/14/17 11:16 98.0 105 20 96/52 (67) 98 03/14/17 08:40 95 21 03/14/17 07:51 97.7 92 20 105/57 (73) 100 03/14/17 04:00 97.6 93 18 92/54 (67) 98 03/14/17 00:00 97.9 92 18 104/57 (73) 98 03/13/17 20:51 97 03/13/17 20:00 97.9 102 20 107/57 (74) 98 03/13/17 16:00 98.7 105 20 101/50 (67) 98 03/13/17 14:47 99 03/13/17 12:41 98.4 106 20 103/58 (73) 99 I/O 03/13/17 03/13/17 03/13/17 03/14/17 03/14/17 03/14/17 07:00 15:00 23:00 07:00 15:00 23:00 Intake Total 360 ml Balance 360 ml Intake Oral 360 ml # Voids 3 3 1 # Bowel Movements 1 1 0 Laboratory Laboratory Tests Test 03/14/17 06:45 White Blood Count 3.8 Red Blood Count 2.91 Hemoglobin 8.7 Hematocrit 25.3 Mean Corpuscular Volume 87.0 Mean Corpuscular Hemoglobin 29.8 Mean Corpuscular Hemoglobin Concent 34.3 Red Cell Distribution Width 16.1 Platelet Count 209 Mean Platelet Volume 6.9 Neutrophils (%) (Auto) 45.1 Lymphocytes (%) (Auto) 41.5 Monocytes (%) (Auto) 9.6 Eosinophils (%) (Auto) 3.0 Basophils (%) (Auto) 0.8 Neutrophils # (Auto) 1.7 Lymphocytes # (Auto) 1.6 Monocytes # (Auto) 0.4 Eosinophils # (Auto) 0.1 Basophils # (Auto) 0.0 CBC Comment DIFF FINAL Differential Comment Blood Urea Nitrogen 9 Creatinine 0.66 Random Glucose 95 Calcium Level 8.3 Sodium Level 141 Potassium Level 3.5 Chloride Level 108 Carbon Dioxide Level 29.2 Anion Gap 4 Estimat Glomerular Filtration Rate 92 Imaging Last Impressions Chest X-Ray 03/11/17 1011 Signed Impressions: Service Date/Time: Saturday, March 11, 2017 10:25 - CONCLUSION: No acute disease. Mauro Aguila MD Physical Exam HEENT: Normocephalic; atraumatic; no jaundice. CHEST: CTA CARDIAC: RRR ABDOMEN: Soft, nondistended, nontender; no hepatosplenomegaly; bowel sounds are present in all four quadrants. EXTREMITIES: No clubbing, cyanosis, or edema. SKIN: Normal; no rash; no jaundice. SHANK STITCHER: No focal deficits; alert and oriented times three. Assessment and Plan Plan ASSESSMENT: - Upper GIB. S/P EGD (03/12/17)---> Two small ulcers in the gastric antrum. No active bleeding. Pathology pending. PPI Tolerating diet. 8.12/06.3. - Gastric ulcers. Pt was taking Aleve for back pain and excedrin for headaches at home. - Anemia, S/P 2 units PRBC. 8.12/06.3. Plan: - RAHEEL - Await pathology - Protonix 40mg po BID - No NSAIDS- d/w patient - Okay to d/c home from GI standpoint - FU [place] in 2 weeks - EGD in 6 weeks - GI will sign off, please reconsult as needed - This pt seen by myself and Dr Rizvi and this note is written on her behalf Lanette Alonzo Mar 14, 2017 11:34
--- NOTE | 2017-03-14 11:54 | HHI.DS ---
Discharge Summary Admission Date Mar 11, 2017 at 12:20 Discharge Date: Mar 14, 2017 Admitting Diagnosis symptomatic anemia, melena (1) GI bleed ICD Code: K92.2 - Gastrointestinal hemorrhage, unspecified (2) Headache ICD Code: R51 - Headache (3) Melena ICD Code: K92.1 - Melena Status: Acute (4) Symptomatic anemia ICD Code: D64.9 - Anemia, unspecified Status: Acute Procedures 03/12/17 EGD Brief History - From Admission Written by Chivo Kirkland, acting as scribe for Dr. Laird on 03/11/17 at 12:42. 56-year-old female with past medical history of anxiety, depression, PUD who presents for lightheadedness. Patient has been feeling poorly for the past week with chest heaviness, difficulty catching her breath, and lightheadedness. She's been feeling significantly lightheaded and dizzy since yesterday that is made worse with standing. She has some nausea today, but denies any vomiting and oral intake has been good. She hasn't noticed any changes in her stools, however she was found to have grossly melanotic and she was hemoccult positive stool in the ED. Upon EMS arrival she had a systolic blood pressure in the 60s that has improved to 120s with IVF. She remains tachycardic on the monitor in the ED. The patient has been taking Excedrin for headaches, unsure if this formulation has any aspirin or NSAIDs. She does have a history of GI ulcers, last EGD done 7 or 8 years ago. She does not take anything for stomach acid. She does have a glass of wine a few times per week, denies daily use. CBC/BMP: 03/14/17 0645 03/14/17 0645 Significant Findings Laboratory Tests Test 03/11/17 13:15 03/11/17 17:45 03/11/17 21:25 03/11/17 23:51 Urine Leukocyte Esterase TRACE (NEG) Troponin I LESS THAN 0.02 NG/ML LESS THAN 0.02 NG/ML Red Blood Count 2.46 MIL/MM3 (4.00-5.30) Hemoglobin 7.2 GM/DL (11.6-15.3) Hematocrit 21.0 % (35.0-46.0) Neutrophils (%) (Auto) 76.9 % (16.0-70.0) Test 03/12/17 03:55 03/12/17 10:39 03/13/17 07:46 03/14/17 06:45 Red Blood Count 2.43 MIL/MM3 (4.00-5.30) 2.81 MIL/MM3 (4.00-5.30) 2.91 MIL/MM3 (4.00-5.30) Hemoglobin 7.0 GM/DL (11.6-15.3) 8.5 GM/DL (11.6-15.3) 8.4 GM/DL (11.6-15.3) 8.7 GM/DL (11.6-15.3) Hematocrit 20.9 % (35.0-46.0) 24.5 % (35.0-46.0) 24.4 % (35.0-46.0) 25.3 % (35.0-46.0) Calcium Level 8.0 MG/DL (8.5-10.1) 8.3 MG/DL (8.5-10.1) Chloride Level 112 MEQ/L (98-107) 108 MEQ/L (98-107) Anion Gap 4 MEQ/L (5-15) 4 MEQ/L (5-15) White Blood Count 3.8 TH/MM3 (4.0-11.0) Mean Platelet Volume 6.9 FL (7.0-11.0) Monocytes (%) (Auto) 9.6 % (0.0-8.0) Neutrophils # (Auto) 1.7 TH/MM3 (1.8-7.7) Imaging Last Impressions Chest X-Ray 03/11/17 1011 Signed Impressions: Service Date/Time: Saturday, March 11, 2017 10:25 - CONCLUSION: No acute disease. Mauro Aguila MD PE at Discharge General: No acute distress. Heart: Regular rate and rhythm. No murmur. Lungs: Clear to auscultation bilaterally. No wheezes, rales, or rhonchi. Breathing is nonlabored. Abdomen: Soft, nontender, nondistended. Extremities: No lower extremity edema. Psych: Alert and oriented. Pt update on day of discharge No complaints at this time. Denies abdominal pain, nausea, vomiting. No diarrhea or constipation. No further bleeding. She wants to go home. Hospital Course The patient was admitted for management of GI bleed, symptomatic anemia. GI was consulted. Patient was started on Protonix drip. She received transfusion of 2 units PRBCs. Hemoglobin improved. There was no further bleeding. EGD showed 2 small ulcers in the gastric antrum. She was transitioned to oral Protonix. Hemoglobin remained stable. She was cleared for discharge by gastroenterology. Pt Condition on Discharge: Stable Discharge Disposition: Discharge Home Discharge Time: > 30 minutes Discharge Instructions DIET: Follow Instructions for: Heart Healthy Diet Activities you can perform: Regular-No Restrictions Follow up Referrals: Gastroenterology - 2 Weeks with Carrie Rizvi MD PCP Follow-up - 1 Week New Medications: Pantoprazole (Pantoprazole) 40 Mg Tab 40 MG PO Q12HR for Reflux, #28 TAB Continued Medications: Alprazolam (Xanax) 0.5 Mg Tab 0.5 MG PO Q6H PRN for ANXIETY, TAB 0 Refills Bupropion HCl ER 24 HR (Wellbutrin Xl 24 HR) 300 Mg Tab 300 MG PO DAILY for Control Depression, TAB 0 Refills Escitalopram (Lexapro) 20 Mg Tab 20 MG PO DAILY, #30 TAB 0 Refills Keo Robins MD Mar 14, 2017 11:54
== END 2017-03-14 14:08 | disposition home or self-care (01) | DRG 811 ==
LOC: NEPE 09:40 → NEDA 12:20 → N05B 14:47
PROVIDERS: ADMIT Family Medicine; ATTEND Family Medicine
PROC: 30233N1 Transfusion of Nonautologous Red Blood Cells into Peripheral Vein, Percutaneous Approach (ICD-10-PCS; 2017-03-11)
PROC: 0DB68ZX Excision of Stomach, Via Natural or Artificial Opening Endoscopic, Diagnostic (ICD-10-PCS; principal; 2017-03-12 11:00)
DX: D62 Acute posthemorrhagic anemia (principal); K25.4 Chronic or unspecified gastric ulcer with hemorrhage; I95.1 Orthostatic hypotension; K21.9 Gastro-esophageal reflux disease without esophagitis; I45.10 Unspecified right bundle-branch block; F32.9 Major depressive disorder, single episode, unspecified; F41.9 Anxiety disorder, unspecified; Z87.11 Personal history of peptic ulcer disease
CPT/HCPCS: 36430; 71010; 80048; 81001; 82550; 83735; 84484; 85014; 85018; 85025; 85379; 85610; 85730; 86850; 86900; 86901; 86920; 88305; 88312; 93005; 96360; C9113; J1170; J2270; J2370; J7030; J7040; J7050; P9016